=== PATIENT | female | born 1980 | race Caucasian/White ===

== ENCOUNTER 2025-02-27 13:18 | Outpatient (CLI) | payer SELFPAY ==
--- OUTSIDE RECORDS SUMMARY | 2024-02-10 07:23 | XMS_ITS | Continuity of Care Document ---
Author Organization [facility] Address [address] [place] [address] Phone Care Team Providers Care Dump Motorman Name Role Phone Antoinette OMALLEY, Kamini Unavailable Unavailabl e Advance Directives Directive Yes / No Effective Date File Name No Information Encounters Encounter Description Practice Location Reason(s) For Visit Diagnoses Date Provider Providers Copied on Encounter [facility] , [address], [place], [place], [id number], tel:[phone] [facility] [place] No Information Antoinette Suárez. [address], [place], [place], [id number], [place]. tel:[phone] Family History Family Member Type Diagnosis Age At Onset No Information Payers Payer name Insurance type Covered alliance party ID Authoriza tion(s) No Information Social History Type Description Quantity Date Captured Comments Sex Female Smoking Status No Information Chief Complaint And Reason For Visit No Information Reason For Referral Reason For Referral No Information History Of Present Illness Encounter Date Complaint History Of Prese nt Illness No Information Functional Status Date Functional Assessmen t No Information Instructions Date Instruction Additional Infor mation No Information Assessments Type Assessment Date No Information Patient Care Teams Name Effective Dates (start - stop) Status Members No Information
--- NOTE | ~2025-02-27 | MM_ITS ---
EXAMINATION: MM screening [facility] BI w nevaeh INDICATION: Asymptomatic, referred for screening mammogram COMPARISON: None available TECHNIQUE: Digital Breast Tomosynthesis CC, MLO views of Both breasts were obtained with computer-aided detection to assist in interpretation of the study. FINDINGS: There are scattered areas of fibroglandular density. There is a prominent lymph node containing calcifications seen in the left axilla. Elsewhere, there are no mammographic features of malignancy. IMPRESSION: 1. Left axillary prominent lymph nodes containing calcifications. This finding can be seen in patients with large tattoo on the chest or back or related to other pathologies such as rheumatoid arthritis treated with gold injection. 2. No evidence of malignancy in either breast. RECOMMENDATION: Left axillary ultrasound BI-RADS Category 0: Incomplete: Needs additional imaging evaluation. Reviewed, dictated and finalized at location B. IMPRESSION: 1. Left axillary prominent lymph nodes containing calcifications. This finding can be seen in patients with large tattoo on the chest or back or related to o ther pathologies such as rheumatoid arthritis treated with gold injection. 2. No evidence of malignancy in either breast. RECOMMENDATION: Left axillary ultrasound BI-RADS Category 0: Incomplete: Needs additional imaging evaluation.
--- OUTSIDE RECORDS SUMMARY | 2025-02-27 13:34 | XMS_ITS | Clinical Summary ---
Author Organization 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 Gender Identity Not on file Sexual Orientation Not on file Plan of Treatment Health Maintenance Due Date Last Done Comments Cervical Cancer Screening Pa p Smear (Age 30 to 64) Every 3 Years 1979 Colorectal Cancer Screening Colonoscopy (10 Years) 1979 Annual Physical 1982 Hepatitis C 1997 DTaP, Tdap and Td Vaccines ( 1 - Tdap) 1998 Hepatitis B Vaccines (1 of 3 - 19+ 3-dose series) 1998 HPV Vaccines (1 - 3-dose SCD M series) 2006 Cervical Cancer Screening Pa p with HPV Testing (Age 30 to 64) Every 5 Years 2009 Cervical Cancer Screening with HPV 2009 Mammogram Screening 2019 COVID-19 Vaccine (2023-2 5 season) 2024 Meningococcal B Vaccine Aged Out No l onger eligible based on patient's age to complete this topic Meningococcal Vaccine Aged Out No katey krysta eligible based on patient's age to complete this topic Pneumococcal Vaccine: Pediat rics (0 to 5 Years) and At-Risk Patients (6 to 49 Years) Aged Out No longer eligible b ased on patient's age to complete this topic RSV Immunizations Under 20 Months Aged Out No longer eligible based on patient's age to complete this topic
--- OUTSIDE RECORDS SUMMARY | 2025-02-27 13:34 | XMS_ITS | Clinical Summary ---
Author Organization [facility] Address [address] [place] [address] Care Team Providers Care Outreach Representative Name Role Phone Rozina Kovacs APRN-CENTRAL PROCESSING TECHNICIAN Primary Care Provi tre Source Comments [facility] [employer],non-owned Affiliates and Associated Physician Practices is amultiple site organization consisting of ambulatory clinics and hospital sitesin [place], [place], [place] and [place]. This disclosure is being madepursuant to the Care Everywhere program and may not contain all information available regarding this patient. Last updated 18.[facility] [employer] Allergies No known active allergies Medications * Be aware that medications may not be up to date on this document. Alwaysverify current medications with the patient. amphetamine-dex troamphetamine (ADDERALL) 20 MG tablet Take 20 mg by mouth once daily 02/13/2018 Active DULoxetine (CYMBALTA) 60 MG capsule Take 60 mg by mouth once daily 02/06/2018 Active SYNTHROID 50 MCG tablet Take 50 mcg by mouth once daily 12/30/2017 Active liothyronine (CYTOMEL) 5 MCG tablet Take 5 mcg by mouth 12/30/2017 Active bioidentical estrogen cream CREA compound Apply to affected area once daily Strength: 0.5 Active testosterone 5 mg/0.1ml 5MG/0.1ML injection Inject into muscle once Strength:0.5 ml Active Active Problems No known active problems Family History Medical History Relation Name Comments Renal Disease Father Renal Disease Paternal Grandmother Relation Name Status Comments Father (Age 42) Mother Alive Paternal Grandmother Social History Tobacco Use Types Packs/Day Years Used Date Smoking Tobacco: Former Cigarettes 1 - 2011 Smokeless Tobacco: Never Alcohol Use Standard Drinks/Week Comments Yes 0 (1 standard drink = 0.6 oz pur e alcohol) ocassional 6 per week Comments No Sex and Gender Information Value Date Recorded Sex Assigned at Not on file Legal Sex Female 8:47 AM CDT Gender Identity Not on file Sexual Orientation Not on file Occupation Industry Job Start Date Job End Date contractor Not on file Not on file Not on file Last Filed Vital Signs Vital Sign Reading Time Taken Comments Blood Pressure 130/90 10/13/2018 11:07 AM CDT Pulse 75 10/13/2018 11:07 AM CDT Temperature 36.3 C (97.3 F) 10/13/2018 11:07 AM CDT Respiratory Rate 18 10/13/2018 11:07 AM CDT Oxygen Saturation 98% 07/12/2018 2:29 PM HAND TOOL LAPPER Inhaled Oxygen Concentration - - Weight 61.2 kg (135 lb) 10/13/2018 11:07 AM CDT Height 149.9 cm (4' 11) 10/13/2018 11:07 AM CDT Body Mass Index 27.27 10/13/2018 11:07 AM CDT Plan of Treatment Health Maintenance Due Date Last Done Comments COLOGUARD (AGES 45-75) - COL ON CA SCREENING 1979 COLON MONITORING 1979 COLONOSCOPY - COLON CA SCREENING 1979 CT COLONOGRAPHY - COLON CA SCREENING 1979 Colorectal Cancer Screening 1979 FIT - COLON CA SCREENING 1979 FLEX SIG - COLON CA SCREENING 1979 LIPID TESTING 1979 MAMMOGRAM 1979 HEPATITIS C SCREENING 03/17/1997 DTAP/TDAP/TD VACCINES (1 - Tdap) 1998 HEPATITIS B VACCINE (1 of 3 - + 3-dose series) 1998 HPV VACCINE (1 - 3-dose SCDM series) 2006 PAP with HPV 07/14/2023 07/14/2018 COVID-19 VACCINE (1 - 2023-2 5 season) 2024 DEPRESSION SCREENING 07/04/2024 INFLUENZA VACCINE (#1) 2025 ZOSTER VACCINE (1 of 2) 2029 HIV SCREENING Completed 07/18/2018 HIB VACCINE Aged Out No longer eligi ble based on patient's age to complete this topic MENINGOCOCCAL (Group B) VACC INE SHARED DECISION-MAKING Aged Out No longer eligibl e based on patient's age to complete this topic MENINGOCOCCAL GROUPS A/C/Y/W VACCINE Aged Out No longer eligible b ased on patient's age to complete this topic PNEUMOCOCCAL VACCINE Aged Out No long er eligible based on patient's age to complete this topic Procedures Procedure Name Priority Date/Time Associated Diagnosis Comments HIV-1 HIV-2 ANTIGEN/ANTIBODY W RFLX Routine 07/18/2018 12:05 PM HAND TOOL LAPPER Encounter for assessment of STD exposure HPV DETECTION HIGH RISK RADHA Routine 07/14/2018 9:21 AM HAND TOOL LAPPER Well woman exam with routine gynecological exam from Last 3 Months or Most Recently Relevant to Health Maintenance Results * HIV-1 HIV-2 ANTIGEN/ANTIBODY W RFLX (07/18/2018 12:05 PM HAND TOOL LAPPER) [facility] HIV Screen 4th Generation w Reflex NON-REACT PAUL NON-REACT PAUL [facility]ST Comment: HIV-1 antigen and HIV-1/HIV-2 antibodies were not detected. There is no laboratory evidence of HIV infection. PLEASE NOTE: This information has been disclosed to you from records whose confidentiality may be protected by state law. If your state requires such protection, then the state law prohibits you from making any further disclosure of the information without the specific written consent of the person to whom it pertains, or as otherwise permitted by law. A general authorization for the release of medical or other information is NOT sufficient for this purpose. For additional information please refer to http://education.[employer]/faq/CGG604 (This link is being provided for informational/ educational purposes only.) The performance of this assay has not been clinically validated in patients less than 2 years old. Test Performed at: [facility] [address] [place] [address] CARRILLO GAY DO,MPH Blood BLOOD SPECIMEN / Unknown 07/18/2018 12:05 PM HAND TOOL LAPPER 07/18/2018 12:06 PM HAND TOOL LAPPER Gladys [facility] SER[facility] ORDERABLES Final Result [facility] [address] [place] [address] * HPV DETECTION HIGH RISK RADHA (07/14/2018 9:21 AM HAND TOOL LAPPER) High Risk Human Papilloma Result Not Detected Not Detected 07/17/2018 4:23 PM HAND TOOL LAPPER [facility] High Risk Human Papilloma Interp 07/17/2018 4:23 PM HAND TOOL LAPPER [facility] Comment:High Risk Human Robbie lloma Virus was Not Detected. Pathology/Cytolo gy MISCELLANEOUS SAMPLES / Unknown 07/14/2018 9:21 AM HAND TOOL LAPPER 07/17/2018 9:21 AM HAND TOOL LAPPER Narrative [facility] - 07/17/2018 4:23 PM HAND TOOL LAPPER Nucleic acid isolated from the specimen was analyzed with a nucleic acid amplification test (FDA approved Gen-Probe HPV Assay) to detect high risk human papilloma virus (Types: 16, 18, 31, 33, 35, 39, 45, 51, 52, 56, 58, 59, 66, and 68). The reference range is Not Detected. Comment: These test results should not be used as the sole basis for clinical assessment and treatment of patients. These results should always be correlated with other available data (cytology, histology, and clinical information). Gladys Garg [facility] - MICROBIOLOGY ORDERA BLES Final Result Performing Organization Address City/[facility]/ZIP Co de Phone Number [facility] [place] [address], [facility] [phone] from Last 3 Months or Most Recently Relevant to Health Maintenance Care Teams Outreach Representative Relationship Specialty Start Date End Date Rozina Kovacs APRN-CNP PCP - General 10/13/18
--- OUTSIDE RECORDS SUMMARY | 2025-02-27 13:34 | XMS_ITS | Clinical Summary ---
Author Organization [email or web address] Address [address] [place] [address] Care Team Providers Care Missile Mechanic Name Role Phone Angela Currie MD Primary Care Provider Unavailab le Allergies No known active allergies Medications DULoxetine (CYMBALTA) 60 mg Capsule, Delayed Release(E.C.) Take 60 mg by mouth daily. 02/06/2018 Active dextroamphetamin e-amphetamine (ADDERALL) 20 mg tablet Take 20 mg by mouth daily. 02/13/2018 Active ziprasidone (GEODON) 20 mg Capsule Take 20 mg by mouth 2 times daily with meals. Active liothyronine (CYTOMEL) 5 mcg Tablet Take 1 Tablet (5 mcg) by mouth daily. 90 Tablet 1 02/16/2021 Active levothyroxine 25 mcg tablet Take 1 Tablet (25 mcg) by mouth daily in the morning. 90 Tablet 1 02/16/2021 Active Active Problems No known active problems Encounters Date Type Department Care Team Description 12/04/2024 External Device Data [facility] ABSTRACTION Provider, Abstract from Last 3 Months Immunizations Immunization Administration Dates Next Due (ADACEL/BOOSTRIX)(10 YR UP) TDAP VACCINE, 0.5ML, IM 01/19/2021 (SPIKEVAX) (12 YRS UP PRIMAR Y SERIES) COVID-19 VACCINE - MRNA-1273(PF) 100 MCG/0.5 ML IM SUSP 09/29/2020,09/01/2020 Social History Tobacco Use Types Packs/Day Years Used Date Smoking Tobacco: Former Smokeless Tobacco: Former Alcohol Use Standard Drinks/Week Comments Yes 0 (1 standard drink = 0.6 oz pur e alcohol) Comments No Sex and Gender Information Value Date Recorded Sex Assigned at Not on file Legal Sex Female 2:14 PM CDT Gender Identity Not on file Sexual Orientation Not on file Last Filed Vital Signs Vital Sign Reading Time Taken Comments Blood Pressure 168/88 12/12/2023 2:37 PM CDT Pulse 75 12/12/2023 2:37 PM CDT Temperature 36.8 C (98.3 F) 12/12/2023 2:37 PM CDT Respiratory Rate 16 12/12/2023 2:37 PM CDT Oxygen Saturation 98% 12/12/2023 2:37 PM CDT Inhaled Oxygen Concentration - - Weight 65.8 kg (145 lb) 12/12/2023 2:37 PM CDT Height 152.4 cm (5') 12/12/2023 2:37 PM CDT Body Mass Index 28.32 12/12/2023 2:37 PM CDT Plan of Treatment Health Maintenance Due Date Last Done Comments HPV VACCINES (1 - 3-dose series) 1994 HEPATITIS B VACCINES (1 of 3 - 19+ 3-dose series) 1998 PAP SMEAR 01/20/2024 01/19/2021 COVID-19 Vaccine (3 - 2023-2 5 season) 2024 09/29/2020, 09/01/2020 COLORECTAL SCREENING 2024 Colorectal Cancer Screening 2024 FIT-DNA Q 3 years 2024 FIT/FOBT Q 1 year 2024 Flex Sig/CT Colonography Q 5 years 2024 BREAST CANCER SCREENING 06/21/2024 06/21/20 23, 01/07/2021, 01/07/2021, Additional history exists INFLUENZA VACCINE (#1) 2025 03/30/2021 CERVICAL CANCER SCREENING 01/19/2026 HPV/Cotest (21-29) 01/19/2026 01/19/2021 HPV/Cotest (30-65) 01/19/2026 01/19/2021 DTAP/TDAP/TD VACCINES (2 - T d or Tdap) 01/19/2031 01/19/2021 Procedures Procedure Name Priority Date/Time Associated Diagnosis Comments MAMMO 3D MELA SCREEN BILAT W OR WO CAD Routine 06/21/2023 3:12 PM WEATHER REPORTER Visit for screening mammogram CERV/VAG CYTO SCREEN PAP RLFX HPV Routine 01/19/2021 12:17 PM CDT Well woman exam with routine gynecological exam from Last 3 Months or Most Recently Relevant to Health Maintenance Results * MAMMO SCRN BILAT 3D MELA W OR WO CAD (06/21/2023 3:12 PM WEATHER REPORTER) Anatomical Region Laterality Modality Breast Bilateral Mammography 06/21/2023 3:12 PM WEATHER REPORTER Impressions 06/21/2023 3:33 PM WEATHER REPORTER : NO RADIOGRAPHIC EVIDENCE OF MALIGNANCY. BI-RADS CATEGORY 1-Negative. Narrative 06/21/2023 3:33 PM WEATHER REPORTER Computer Assisted Detection (CAD) used during interpretation. INDICATION: Screening. Standard views of both breasts are obtained. 3D tomosynthesis was also utilized. Compared to 01/07/21. There has been no change. There is no abnormal mass or grouped microcalcifications present to suggest malignant disease. Breast Density: Scattered areas of fibroglandular density. Papo Farfan MD MAMMO ORDERABLES Final Result * CERV/VAG CYTO SCREEN PAP RLFX HPV (01/19/2021 12:17 PM CDT) CLINICAL INFORMATION [facility] Comment:SCREENING LAST MENSTRUAL PERIOD [facility] Comment:UNK PREV PAP: [facility] Comment:INFORMATION NOT PROV IDED PREV BX: [facility] Comment:INFORMATION NOT PROV IDED SOURCE [facility] Comment:Endocervix ADEQUACY: [facility] Comment: Satisfactory for evaluation. Endocervical/transformation zone component present. Age and/or menstrual status not provided PAP INTERP [facility] Comment:Negative for intraep ithelial lesion or malignancy. COMMENT [facility] Comment: This Pap test has been evaluated with computer assisted technology. GROUP THERAPIST: [facility] Comment: NIRMAL CACERES(ASCP) CT screening location: [place] [address] [place] [address] EXPLANAT[address] NOTE [facility] Comment: EXPLANATORY NOTE: The Pap is a screening test for cervical cancer. It is not a diagnostic test and is subject to false negative and false positive results. It is most reliable when a satisfactory sample, regularly obtained, is submitted with relevant clinical findings and history, and when the Pap result is evaluated along with historic and current clinical information. Test Performed at: [facility] [place] [address] [place] [address] Arely Ivey Genital SWAB OF ENDOCERVIX / Unknown 01/19/2021 12:17 PM CDT 01/19/2021 11:34 PM CDT us Angela Currie MD PATHOLOGY/CYTOLOGY ORDERABLES Fi nal Result [facility] [address] [facility] [address] [address] [place] [address] from Last 3 Months or Most Recently Relevant to Health Maintenance Insurance BCBS BLUE ACCESS/TRUE BLUE PPO [employer] CHOICE POS II Care Teams Missile Mechanic Relationship Specialty Start Date End Date Angela Currie MD PCP - General Internal Medicine 12/30/20
--- OUTSIDE RECORDS SUMMARY | 2025-02-27 13:34 | XMS_ITS | Clinical Summary ---
Author Organization [facility] Address [address] [place] [address] Care Team Providers Care Gis Physical Scientist Name Role Phone Adry Baptiste NP Primary Care Provider Allergies No known active allergies Medications clonazePAM (KlonoPIN) 1 mg tablet TAKE 1/2 TO 1 TABLET BY MOUTH TWICE DAILY NEEDED FOR ANXIETY Oral for 30 Days Active cyanocobalamin (Vitamin B-12) 1,000 mcg/mL injection ADMINISTER 1 ML IN THE MUSCLE EVERY 7 DAYS 4 Active dextroamphetamine -amphetamine (ADDERALL) 20 mg tablet 2 (two) times a day [address] (CYMBALTA) 60 mg capsule Take 1 capsule (60 mg total) by mouth daily Active levothyroxine (SYNTHROID) 25 mcg tablet Take 1 tablet (25 mcg total) by mouth daily 1 Active liothyronine (CYTOMEL) 5 mcg tablet Take 1 tablet (5 mcg total) by mouth daily Active magnesium chloride 64 mg magnesium tablet Take by mouth Active estradioL (ESTRACE) 0.01 % (0.1 mg/gram) vaginal cream Insert 2 g into the vagina daily Active atomoxetine (STRATTERA) 40 mg capsuleIndication s:Attention-Defic it Hyperactivity Disorder Take 1 capsule (40 mg total) by mouth 2 (two) times a day Take only once daily for first 3 days, then twice daily after. 120 capsule 4 Active busPIRone (BUSPAR) 5 mg tabletIndications :Generalized Anxiety Disorder Take 2 tablets (10 mg total) by mouth nightly. May also take 1 tablet (5 mg total) 2 (two) times a day as needed (anxiety). 120 tablet 2 4 Active Active Problems Problem Noted Date Diagnosed Date Anxiety 05/04/2024 Assessment & Plan (05/07/2024 9:23 AM GANG MOWER OPERATOR): Chronic and worsening. Continue Cymbalta daily. Start BuSpar 5 mg as needed twice daily for anxiety and 10 mg at night to help with anxiety related insomnia. Attention deficit disorder 05/04/2024 Assessment & Plan (05/07/2024 9:23 AM GANG MOWER OPERATOR): Chronic. Continue current prescription of Adderall until medication runs out. Then start Strattera. Heart murmur 05/04/2024 Hypothyroidism 05/04/2024 Assessment & Plan (05/07/2024 9:21 AM GANG MOWER OPERATOR): Controlled. Continue Synthroid and Cytomel daily. Patient does not want to repeat labs today. Cardiomyopathy 10/25/2017 Hyperlipidemia 07/19/2017 Assessment & Plan (05/07/2024 9:22 AM GANG MOWER OPERATOR): Controlled with lifestyle modification at this time. Declines lab work today. Hypertension 07/19/2017 Assessment & Plan (05/07/2024 9:22 AM GANG MOWER OPERATOR): Controlled with lifestyle modification at this time. Resolved Problems Problem Noted Date Diagnosed Date Resolved Date Chest pain 07/19/2017 05/04/2024 Immunizations Immunization Administration Dates Next Due Tdap 01/19/2021 Surgical History Surgery Date Site/Laterality Comments CHOLECYSTECTOMY Medical History Medical History Date Comments ADHD (attention deficit hyperactivity disorder) Anxiety Depression Psoriasis Family History Medical History Relation Name Comments Kidney disease Father Family histor y of kidney disease - (Added by TW Conv) Hypertension Maternal Grandmother Family history of hypertension - (Added by TW Conv) Diabetes Paternal Grandfather Family history of diabetes mellitus - (Added by TW Conv) Diabetes Paternal Grandmother Family history of diabetes mellitus - (Added by TW Conv) Relation Name Status Comments Father Maternal Grandmother Paternal Grandfather Paternal Grandmother Social History Tobacco Use Types Packs/Day Years Used Date Smoking Tobacco: Former AUDIT-C Answer Date Recorded Q1: How often do you have a drink containing alc ohol? Monthly or less 05/04/2024 Q2: How many drinks containi ng alcohol do you have on a typical day when you are drinking? 3 or 4 05/04/2024 Q3: How often do you have si x or more drinks on one occasion? Never 05/04/2024 PHQ-2 Answer Date Recorded PHQ-2 Total Score (If total score is 3 or more points, staff should administer the PHQ-9) 2 05/04/2024 Personal Safety Answer Date Recorded Getting School Help Needed Not on file 09/16 Comments Unknown Sex and Gender Information Value Date Recorded Sex Assigned at Not on file Legal Sex Female 3:04 AM GANG MOWER OPERATOR Gender Identity Not on file Sexual Orientation Not on file Obstetrics History Last Filed Vital Signs Vital Sign Reading Time Taken Comments Blood Pressure 138/82 05/04/2024 1:53 PM CDT Pulse 66 05/04/2024 1:53 PM CDT Temperature 36.3 C (97.3 F) 05/04/2024 1:53 PM CDT Respiratory Rate - - Oxygen Saturation 98% 05/04/2024 1:53 PM CDT Inhaled Oxygen Concentration - - Weight 68.9 kg (152 lb) 05/04/2024 1:53 PM CDT Height 152 cm (4' 11.84) 05/04/2024 1:53 PM CDT Body Mass Index 29.84 05/04/2024 1:53 PM CDT Plan of Treatment Health Maintenance Due Date Last Done Comments Cervical Cancer Screening 1979 Colon Cancer Screening-Colonoscopy 1979 Hepatitis C Screening 1979 Hepatitis B Screening 1997 Regular Well Visit/Exam 18-64 1997 HPV Vaccines (1 - 3-dose SCD M series) 2006 Covid-19 Vaccine (2023-2 5 season) 2024 09/29/2020, 09/01/2020 Breast Cancer Screening-Mammogram 06/21/2024 06/21/2023, 06/21/2023, 01/07/2021 Influenza Vaccine (#1) 2025 Depression Screening 05/04/2025 05/04/2024 DTaP/Tdap/Td Vaccine (2 - Td or Tdap) 01/19/2031 01/19/2021 Pneumococcal vaccine <65 Aged Out No longer eligible based on patient's age to complete this topic Insurance [facility] PENDING SALE TO [facility] [employer] CHOICE Care Teams Gis Physical Scientist Relationship Specialty Start Date End Date Adry Baptiste NP [address] [id number] PCP - General Family Medicine 05/04/24
== END 2025-02-27 13:19 | disposition home or self-care (01) ==
LOC: CHSIMG 13:25
DX: Z12.31 Encounter for screening mammogram for malignant neoplasm of breast (principal); R92.8 Other abnormal and inconclusive findings on diagnostic imaging of breast
CPT/HCPCS: 77063; 77067